=== PATIENT | male | born 2000 | race Two or more races ===

== ENCOUNTER 2025-05-06 11:12 | Emergency (ER) | payer OTHER ==
[~2025-05-06] VITALS: Ht 172.7 cm; Wt 83.9 kg
[2025-05-06 11:25] VITALS: BP 145/80; TEMP 98.1
[2025-05-06 12:19] VITALS: O2SAT 98
== END 2025-05-06 12:20 | disposition home or self-care (01) ==
LOC: ER 11:41
DX: S93.401A Sprain of unspecified ligament of right ankle, initial encounter (principal); J45.909 Unspecified asthma, uncomplicated; V87.8XXA Person injured in other specified noncollision transport accidents involving motor vehicle (traffic), initial encounter; Y93.55 Activity, bike riding; Y92.410 Unspecified street and highway as the place of occurrence of the external cause; Y99.9 Unspecified external cause status
CPT/HCPCS: 73610-TC